=== PATIENT | female | born 1965 | race Native Hawaiian/Other Pacific Islander ===

== ENCOUNTER 2020-06-08 14:35 | Inpatient (IN) | payer SELFPAY ==
[~2020-06-08] VITALS: Ht 152.4 cm; Wt 86.3 kg
--- NOTE | 2020-06-08 15:03 | ED Neurological Problem ---
General Chief Complaint: Neurological Problems Stated Complaint: R SIDE NUMBNESS/SLURRED SPEECH/HEADACHE Source: patient Exam Limitations: no limitations History of Present Illness Date Seen by Provider: Jun 08, 2020 Time Seen by Provider: 15:01 Initial Comments To ER with reports of speech difficulty-- word searching-- and a left-sided headache over the restoration. She states these symptoms come and go and have done so for about 2 weeks. She had cataract surgery in [facility] about 3 weeks ago. She is diabetic. She states that she knows what words she wants to state but has trouble getting it to come out. Smokes 1ppd. Severity: moderate Associated Symptoms: denies symptoms Allergies and Home Medications Allergies Coded Allergies: No Known Drug Allergies (Unverified , 06/08/20) Patient Home Medication List Home Medication List Reviewed: Yes Review of Systems Review of Systems Constitutional: see HPI Eyes: No Symptoms Reported Ears, Nose, Mouth, Throat: no symptoms reported Respiratory: no symptoms reported Cardiovascular: no symptoms reported Genitourinary: no symptoms reported Musculoskeletal: no symptoms reported Skin: no symptoms reported Psychiatric/Neurological: No Symptoms Reported Endocrine: No Symptoms Reported Hematologic/Lymphatic: No Symptoms Reported Past Jqcvaob-Qrhzuf-Nwduox Hx Patient Social History Recent Foreign Travel: No Contact w/Someone Who Travel: No Physical Exam Vital Signs Vital Signs - First Documented 06/08/20 14:48 Temp 36.0 Pulse 73 Resp 18 B/P (MAP) 190/109 (136) Pulse Ox 98 O2 Delivery Room Air Capillary Refill : Height, Weight, BMI Height: '" Weight: lbs. oz. kg; BMI Method: General Appearance: WD/WN, no apparent distress HEENT: PERRL/EOMI, normal ENT inspection, other (no facial droop that afternoon as well he is) Neck: non-tender, full range of motion Respiratory: no respiratory distress, no accessory muscle use Cardiovascular: regular rate, rhythm, no murmur Gastrointestinal: normal bowel sounds, non tender Extremities: normal range of motion, non-tender Neurologic/Psychiatric: alert, normal mood/affect, oriented x 3 Crainal Nerves: normal hearing, normal speech, PERRL Skin: normal color, warm/dry Shield Iii-there is no upper extremity ataxia no drift of either extremity Stroke NIH Stroke Scale Assessment Select: Initial Level of Consciousness: 0=Alert (0), Level of Consciousness- Questions: 0=Answers both month/age (0), LOC Commands: 0=Performs both tasks (0), Gaze: Normal (0), Visual Moss: 0=No visual loss (0), Facial Movement (Facial Paresis): 0=Normal symmetrical mnt (0), Motor Function-Arms Right: 0=No drift (0), Motor Function-Arms Left: 0=No drift (0), Motor Function-Legs Right: 0=No drift (0), Motor Function-Legs Left: 0=No drift (0), Limb Ataxia: 0=Absent (0), Sensory: 0=Normal:no loss (0), Best Language: 0=No aphasia (0), Dysarthria: 1=Mild to moderate loss questionable slurred speech though she has dentures and her [place] language is Citizen [place] (though she is quite fluent in [place]) (1), Extinction & Inattention: 0=No abnormality (0), Total: 1 Progress/Results/Core Measures Results/Orders Lab Results Laboratory Tests Test 06/08/20 14:26 06/08/20 14:56 06/08/20 16:20 Range/Units White Blood Count 12.2 H 4.3-11.0 10^3/uL Red Blood Count 5.02 3.80-5.11 10^6/uL Hemoglobin 14.7 11.5-16.0 g/dL Hematocrit 44 35-52 % Mean Corpuscular Volume 88 80-99 fL Mean Corpuscular Hemoglobin 29 25-34 pg Mean Corpuscular Hemoglobin Concent 33 32-36 g/dL Red Cell Distribution Width 13.1 10.0-14.5 % Platelet Count 299 130-400 10^3/uL Mean Platelet Volume 9.3 9.0-12.2 fL Immature Granulocyte % (Auto) 0 % Neutrophils (%) (Auto) 57 42-75 % Lymphocytes (%) (Auto) 36 12-44 % Monocytes (%) (Auto) 6 0-12 % Eosinophils (%) (Auto) 1 0-10 % Basophils (%) (Auto) 0 0-10 % Neutrophils # (Auto) 7.0 1.8-7.8 10^3/uL Lymphocytes # (Auto) 4.4 H 1.0-4.0 10^3/uL Monocytes # (Auto) 0.7 0.0-1.0 10^3/uL Eosinophils # (Auto) 0.1 0.0-0.3 10^3/uL Basophils # (Auto) 0.0 0.0-0.1 10^3/uL Immature Granulocyte # (Auto) 0.0 0.0-0.1 10^3/uL Erythrocyte Sedimentation Rate 14 0-30 MM/HR Sodium Level 139 135-145 MMOL/L Potassium Level 3.9 3.6-5.0 MMOL/L Chloride Level 102 98-107 MMOL/L Carbon Dioxide Level 26 21-32 MMOL/L Anion Gap 11 5-14 MMOL/L Blood Urea Nitrogen 14 7-18 MG/DL Creatinine 0.90 0.60-1.30 MG/DL Estimat Glomerular Filtration Rate > 60 BUN/Creatinine Ratio 16 Glucose Level 236 H 70-105 MG/DL Calcium Level 9.1 8.5-10.1 MG/DL Corrected Calcium 9.1 8.5-10.1 MG/DL Total Bilirubin 0.3 0.1-1.0 MG/DL Aspartate Amino Transf (AST/SGOT) 14 5-34 U/L Alanine Aminotransferase (ALT/SGPT) 18 0-55 U/L Alkaline Phosphatase 118 40-136 U/L C-Reactive Protein High Sensitivity 1.45 H 0.00-0.50 MG/DL Total Protein 7.9 6.4-8.2 GM/DL Albumin 4.0 3.2-4.5 GM/DL Serum Alcohol < 10 <10 MG/DL Urine Color YELLOW Urine Clarity CLOUDY Urine pH 6.0 5-9 Urine Specific [place] 1.020 1.016-1.022 Urine Protein NEGATIVE NEGATIVE Urine Glucose (UA) 3+ H NEGATIVE Urine Ketones NEGATIVE NEGATIVE Urine Nitrite POSITIVE H NEGATIVE Urine Bilirubin NEGATIVE NEGATIVE Urine Urobilinogen 0.2 < = 1.0 MG/DL Urine Leukocyte Esterase NEGATIVE NEGATIVE Urine RBC (Auto) NEGATIVE NEGATIVE Urine RBC 0-2 /HPF Urine WBC 5-10 H /HPF Urine Squamous Epithelial Cells 5-10 /HPF Urine Crystals PRESENT H /LPF Urine Amorphous Sediment LARGE HARDEEP URATES H /LPF Urine Bacteria LARGE H /HPF Urine Casts NONE /LPF Urine Mucus NEGATIVE /LPF Urine Culture Indicated YES Urine Opiates Screen NEGATIVE NEGATIVE Urine Oxycodone Screen NEGATIVE NEGATIVE Urine Methadone Screen NEGATIVE NEGATIVE Urine Propoxyphene Screen NEGATIVE NEGATIVE Urine Barbiturates Screen NEGATIVE NEGATIVE Ur Tricyclic Antidepressants Screen NEGATIVE NEGATIVE Urine Phencyclidine Screen NEGATIVE NEGATIVE Urine Amphetamines Screen NEGATIVE NEGATIVE Urine Methamphetamines Screen NEGATIVE NEGATIVE Urine Benzodiazepines Screen NEGATIVE NEGATIVE Urine Cocaine Screen NEGATIVE NEGATIVE Urine Cannabinoids Screen NEGATIVE NEGATIVE My Orders Orders - JONATAN YOUSIF APRN Cbc With Automated Diff (06/08/20 14:59) Comprehensive Metabolic Panel (06/08/20 14:59) Erythrocyte Sedimentation Rate (06/08/20 14:59) Hs C Reactive Protein (06/08/20 14:59) Ct Head Wo (06/08/20 14:59) Chest 1 View, Ap/Pa Only (06/08/20 14:59) Ekg Tracing (06/08/20 14:59) Alcohol (06/08/20 14:59) Ua Culture If Indicated (06/08/20 14:59) Drug Screen Stat (Urine) (06/08/20 14:59) Urine Culture (06/08/20 16:20) Ceftriaxone For Iv Use (Rocephin For I (06/08/20 16:45) Ct Angio Head/Neck (06/08/20 16:36) Medications Given in ED Current Medications Medications Dose Ordered Sig/Sergio Route Start Time Stop Time Status Last Admin Dose Admin Ceftriaxone Sodium 1000 mg/ Sterile Water 10 ml @ 200 mls/hr ONCE ONCE IV 06/08/20 16:45 06/08/20 16:47 DC 06/08/20 16:47 200 MLS/HR Vital Signs/I&O 06/08/20 14:48 Temp 36.0 Pulse 73 Resp 18 B/P (MAP) 190/109 (136) Pulse Ox 98 O2 Delivery Room Air Diagnostic Imaging Diagonstic Imaging: CT Comments NAME: GABBY DAY [facility] REC#: [id number] PT STATUS: REG ER : 1965 PHYSICIAN: JONATAN YOUSIF APRN ADMIT DATE: 06/08/20/ER Signed Date of Exam:06/08/20 CT HEAD WO INDICATION: Intermittent slurred speech, headaches, left eye pain. EXAMINATION: CT brain without contrast, 06/08/2020. FINDINGS: Diffuse calcifications noted bilaterally in the basal ganglia. No acute hemorrhage appreciated no mass effect or midline shift. There is a nonspecific low density area within the posterior left parietal region and extending into the left occipital region, images 30 through 39. These findings could represent old infarct. A subacute process is less likely but difficult to exclude. MRI with diffusion-weighted imaging could further characterize and help exclude any restricted diffusion in the region, as clinically indicated. The remaining brain is unremarkable. Paranasal sinuses and mastoid air cells clear. IMPRESSION: Vague low density area in the left posterior parietal and occipital lobes, likely chronic although a more subacute process is difficult to completely exclude. Please see above discussion and recommendations. Dictated by: Dictated on workstation # [id number] Dict: 06/08/20 1606 Trans: 06/08/20 1622 PJE [id number] Interpreted by: ROXY MCDERMOTT MD Electronically signed by: ROXY MCDERMOTT MD 06/08/201621 NAME: GABBY DAY [facility] REC#: [id number] PT STATUS: ADM IN : 1965 PHYSICIAN: JONATAN YOUSIF APRN ADMIT DATE: 06/08/20 Draft Date of Exam:06/08/20 CT ANGIO HEAD/NECK PROCEDURE: CT angiography of the head and CT angiography of the neck with and without contrast. TECHNIQUE: Contiguous noncontrast images were obtained from the skull base through the vertex. After intravenous contrast administration, helical CT angiography of the neck was performed. Source data was reformatted into 3D MIP projections. Delayed post contrast acquisition was also obtained. Auto Exposure Controls were utilized during the CT exam to meet ALARA standards for radiation dose reduction. INDICATION: Expressive aphasia, slurred speech. COMPARISON: CT of the head from the same date. FINDINGS: Calcifications within the bilateral basal ganglia. Wedge-shaped hypodensities within the left parieto-occipital lobes are again identified. There does appear to be some enhancement of the more inferior hypodensity no midline shift. No herniation, hydrocephalus or extra-axial fluid collection. The bilateral ocular lenses are absent. Otherwise, the orbits are unremarkable. No enhancing intracranial mass lesion. 1.5 cm lucency within the right frontal bone without periosteal reaction or cortical breakthrough. The calvarium is otherwise unremarkable. The paranasal sinuses are clear. Pharyngeal fat is symmetric and well maintained. The salivary glands are unremarkable. Muscles of mastication are unremarkable. The thyroid gland is unremarkable. No significant adenopathy. The airway remains patent. No apical pneumothorax. A three-vessel aortic arch is present. origin of the left posterior cerebral artery. Otherwise, large arterial structures of the head and neck are otherwise unremarkable without evidence of occlusion, hemodynamically significant stenosis, dissection, aneurysm or pseudoaneurysm. No acute osseous abnormality with mild scattered degenerative changes. IMPRESSION: 1. Hypodensities within the left parieto-occipital lobes which appear to be cortically-based are again identified, one which demonstrate some enhancement. Given appearance, these may relate to recent/subacute infarctions, further evaluation with MRI of the brain is recommended for further evaluation. 2. Large arterial structures of the head and neck are unremarkable besides congenital anatomic variants. 3. Indeterminate lucency within the right frontal bone without definitive aggressive features of this time. Comparison to remote prior imaging may be beneficial to determine chronicity. 4. Mild emphysematous changes within the partially visualized lungs. Dictated on workstation # [id number] Dict: 06/08/20 1740 Trans: 06/08/20 1757 [facility] [id number] Interpreted by: JANNETTE MACK MD Electronically signed by: Departure Communication (Admissions) Time/Spoke to Admitting Phy: 16:55 0545--Dr. Bowden saw the patient in the emergency room we'll admit, consult cardiology get echocardiogram in the morning. Spoke with Dr. Lazo will be Toprol-XL 25 mg by mouth daily, baby aspirin daily, will do Lovenox prophylactic dose, SCDs. She does smoke a pack of cigarettes per day so I'll do a nicotine patch 21 mg transdermal to be changed daily. CT angiogram head and neck pending at this time. NAME: GABBY DAY [facility] REC#: [id number] PT STATUS: REG ER : 1965 PHYSICIAN: JONATAN YOUSIF APRN ADMIT DATE: 06/08/20/ER Signed Date of Exam:06/08/20 CT HEAD WO INDICATION: Intermittent slurred speech, headaches, left eye pain. EXAMINATION: CT brain without contrast, 06/08/2020. FINDINGS: Diffuse calcifications noted bilaterally in the basal ganglia. No acute hemorrhage appreciated no mass effect or midline shift. There is a nonspecific low density area within the posterior left parietal region and extending into the left occipital region, images 30 through 39. These findings could represent old infarct. A subacute process is less likely but difficult to exclude. MRI with diffusion-weighted imaging could further characterize and help exclude any restricted diffusion in the region, as clinically indicated. The remaining brain is unremarkable. Paranasal sinuses and mastoid air cells clear. IMPRESSION: Vague low density area in the left posterior parietal and occipital lobes, likely chronic although a more subacute process is difficult to completely exclude. Please see above discussion and recommendations. Dictated by: Dictated on workstation # [id number] Dict: 06/08/20 1606 Trans: 06/08/20 1622 [facility] [id number] Interpreted by: ROXY MCDERMOTT MD Electronically signed by: ROXY MCDERMOTT MD 06/08/20 1622 Impression Primary Impression: Subacute CVA Additional Impression: Urinary tract infection Disposition: ADMITTED INPATIENT Condition: Stable Admissions Decision to Admit Reason: Admit from ER (General) Decision to Admit/Date: Jun 08, 2020 Time/Decision to Admit Time: 16:44 Departure-Patient Inst. Referrals: [facility] (PCP/Family) Primary Care Physician JONATAN YOUSIF APRN Jun 08, 2020 15:03
[2020-06-08 15:12] LABS: CHLORIDE 102 MMOL/L (98-107); POTASSIUM 3.9 MMOL/L (3.6-5.0); SODIUM 139 MMOL/L (135-145)
[2020-06-08 15:13] LABS: CALCIUM 9.1 MG/DL (8.5-10.1)
[2020-06-08 15:15] LABS: GLUCOSE 236 MG/DL (70-105); TOTAL PROTEIN 7.9 GM/DL (6.4-8.2)
[2020-06-08 15:16] LABS: BASOPHILS % (AUTO) 0 % (0-10); BILIRUBIN,TOTAL 0.3 MG/DL (0.1-1.0); CARBON DIOXIDE 26 MMOL/L (21-32); EOSINOPHILS # (AUTO) 0.1 10^3/uL (0.0-0.3); EOSINOPHILS % (AUTO) 1 % (0-10); HEMATOCRIT 44 % (35-52); HEMOGLOBIN 14.7 g/dL (11.5-16.0); LYMPHOCYTES # (AUTO) 4.4 10^3/uL (1.0-4.0); LYMPHOCYTES % (AUTO) 36 % (12-44); MEAN CORPUSCULAR HEMOGLOBIN 29 pg (25-34); MEAN CORPUSCULAR HGB CONC 33 g/dL (32-36); MEAN CORPUSCULAR VOLUME 88 fL (80-99); MEAN PLATELET VOLUME 9.3 fL (9.0-12.2); MONOCYTES # (AUTO) 0.7 10^3/uL (0.0-1.0); MONOCYTES % (AUTO) 6 % (0-12); NEUTROPHILS % (AUTO) 57 % (42-75); PLATELET COUNT 299 10^3/uL (130-400); WHITE BLOOD COUNT 12.2 10^3/uL (4.3-11.0)
[2020-06-08 15:18] LABS: ALKALINE PHOSPHATASE 118 U/L (40-136)
[2020-06-08 15:19] LABS: BUN/CREATININE RATIO 16
[2020-06-08 15:21] LABS: ALANINE AMINOTRANSFERASE 18 U/L (0-55)
[2020-06-08 15:25] LABS: GFR ESTIMATED > 60
[2020-06-08 15:57] LABS: ERYTHROCYTE SEDIMENTATION RATE 14 MM/HR (0-30)
--- NOTE | 2020-06-08 16:09 | Diagnostic Imaging Report ---
INDICATION: Intermittent slurred speech. Headaches in the left eye region. EXAMINATION: Chest, 06/08/2020. FINDINGS: There is nonspecific airspace opacity in the right perihilar region extending into the right upper lung. Remaining lungs clear. No effusion or pneumothorax. Heart unremarkable. Pulmonary vasculature prominent, right worse than left. IMPRESSION: Nonspecific airspace opacities throughout the right lung which could be due to pneumonia. Adenopathy in the right hilum suspected. Follow-up recommended to assure complete resolution. Dictated by: Dictated on workstation # [id number]
--- NOTE | 2020-06-08 16:20 | Diagnostic Imaging Report ---
INDICATION: Intermittent slurred speech, headaches, left eye pain. EXAMINATION: CT brain without contrast, 06/08/2020. FINDINGS: Diffuse calcifications noted bilaterally in the basal ganglia. No acute hemorrhage appreciated no mass effect or midline shift. There is a nonspecific low density area within the posterior left parietal region and extending into the left occipital region, images 30 through 39. These findings could represent old infarct. A subacute process is less likely but difficult to exclude. MRI with diffusion-weighted imaging could further characterize and help exclude any restricted diffusion in the region, as clinically indicated. The remaining brain is unremarkable. Paranasal sinuses and mastoid air cells clear. IMPRESSION: Vague low density area in the left posterior parietal and occipital lobes, likely chronic although a more subacute process is difficult to completely exclude. Please see above discussion and recommendations. Dictated by: Dictated on workstation # [id number]
[2020-06-08 16:26] LABS: BILIRUBIN,URINE NEGATIVE (NEGATIVE); CLARITY,URINE CLOUDY; COLOR,URINE YELLOW; GLUCOSE, URINE (UA) 3+ (NEGATIVE); KETONES,URINE NEGATIVE (NEGATIVE); LEUKOCYTE ESTERASE ,URINE NEGATIVE (NEGATIVE); NITRITE,URINE POSITIVE (NEGATIVE); PROTEIN,URINE NEGATIVE (NEGATIVE)
[2020-06-08 16:34] LABS: AMORPHOUS SEDIMENT,UR LARGE AMOR URATES /LPF; BACTERIA,URINE LARGE /HPF; RBC,URINE 0-2 /HPF
[2020-06-08 16:39] LABS: AMPHETAMINE SCREEN, URINE NEGATIVE (NEGATIVE); BARBITURATE SCREEN URINE NEGATIVE (NEGATIVE); BENZODIAZEPINES SCREEN URINE NEGATIVE (NEGATIVE); CANNABINOID SCREEN, URINE NEGATIVE (NEGATIVE); COCAINE SCREEN URINE NEGATIVE (NEGATIVE); METHADONE STAT NEGATIVE (NEGATIVE); METHAMPHETAMINE SCREEN URINE S NEGATIVE (NEGATIVE); OPIATE SCREEN URINE NEGATIVE (NEGATIVE); OXYCODONE STAT NEGATIVE (NEGATIVE); PROPOXYPHENE STAT NEGATIVE (NEGATIVE); TRICYCLIC ANTIDEPRESSANTS SCRE NEGATIVE (NEGATIVE)
[2020-06-08] MEDS ORDERED: cefTRIAXone FOR IV USE 1,000 MG in WATER (STERILE) FOR INJECTION 10 ML IV ONE (16:45)
[2020-06-08] MEDS ORDERED: NS 100 ML (IVPB) BAG IV ONE (17:00)
[2020-06-08] MEDS ORDERED: IOHEXOL 350 MG/ML 100 ML (OMNIPAQUE 350) VIAL IV ONE (17:00)
[2020-06-08] MEDS ORDERED: HOLD METFORMIN - RECEIVED CONTRAST 20 ML VIAL IV SCH (17:00)
--- NOTE | 2020-06-08 17:49 | NUR ---
REPORT CALLED TO 4TH FLOOR. ROOM NOT READY AT THIS TIME.
--- NOTE | 2020-06-08 17:58 | Diagnostic Imaging Report ---
PROCEDURE: CT angiography of the head and CT angiography of the neck with and without contrast. TECHNIQUE: Contiguous noncontrast images were obtained from the skull base through the vertex. After intravenous contrast administration, helical CT angiography of the neck was performed. Source data was reformatted into 3D MIP projections. Delayed post contrast acquisition was also obtained. Auto Exposure Controls were utilized during the CT exam to meet ALARA standards for radiation dose reduction. INDICATION: Expressive aphasia, slurred speech. COMPARISON: CT of the head from the same date. FINDINGS: Calcifications within the bilateral basal ganglia. Wedge-shaped hypodensities within the left parieto-occipital lobes are again identified. There does appear to be some enhancement of the more inferior hypodensity no midline shift. No herniation, hydrocephalus or extra-axial fluid collection. The bilateral ocular lenses are absent. Otherwise, the orbits are unremarkable. No enhancing intracranial mass lesion. 1.5 cm lucency within the right frontal bone without periosteal reaction or cortical breakthrough. The calvarium is otherwise unremarkable. The paranasal sinuses are clear. Pharyngeal fat is symmetric and well maintained. The salivary glands are unremarkable. Muscles of mastication are unremarkable. The thyroid gland is unremarkable. No significant adenopathy. The airway remains patent. No apical pneumothorax. A three-vessel aortic arch is present. origin of the left posterior cerebral artery. Otherwise, large arterial structures of the head and neck are otherwise unremarkable without evidence of occlusion, hemodynamically significant stenosis, dissection, aneurysm or pseudoaneurysm. No acute osseous abnormality with mild scattered degenerative changes. IMPRESSION: 1. Hypodensities within the left parieto-occipital lobes which appear to be cortically-based are again identified, one which demonstrate some enhancement. Given appearance, these may relate to recent/subacute infarctions, further evaluation with MRI of the brain is recommended for further evaluation. 2. Large arterial structures of the head and neck are unremarkable besides congenital anatomic variants. 3. Indeterminate lucency within the right frontal bone without definitive aggressive features of this time. Comparison to remote prior imaging may be beneficial to determine chronicity. 4. Mild emphysematous changes within the partially visualized lungs. Dictated by: Dictated on workstation # [id number]
--- NOTE | 2020-06-08 18:32 | NUR ---
ROOM READY. PT TO GO TO FLOOR
--- NOTE | 2020-06-08 18:40 | NUR ---
GABBY DAY admitted to room 409-1, with an admitting diagnosis of cva and uti, on 06/08/20 from ed via , accompanied by staff pct.GABBY DAY introduced to surroundings, call light, bed controls, phone, TV, temperature control, lights, meal times, smoking policy, visitor policy, side rail policy, bathrooms and showers. Patient Rights given to patient in the handbook. GABBY DAY verbalizes understanding that [facility] is not responsible for the loss or damage to any personal effects or valuables that are kept in the patients posession during their hospitalization.
[2020-06-08 18:47] VITALS: BP 188/90
[2020-06-08] MEDS ORDERED: LORazepam INJ 2 MG/ML (ATIVAN) VIAL IV PRN (19:00)
--- NOTE | 2020-06-08 19:50 | History & Physical-Hospitalist ---
History of Present Illness HPI/Chief Complaint CC: Subacute CVA HPI: This is a 55yoHF who has a h/o DM but takes no meds who presents 2 weeks after unable to speak clearly and having balance issues. Apparently she had cataract removal surgery in [place] 3 weeks ago and then suffered these deficits but did not seek medical care until today. Difficult to understand the patient's speech due to dysarthria. No pain reported. She does smoke and asking for a cigarette. Source: patient, RN/MD Exam Limitations: clinical condition Date Seen 06/08/20 Time Seen by a Provider: 18:00 Attending Physician Rosa Bowden DO [facility] [place] Referring Physician Date of Admission Jun 08, 2020 at 16:51 Home Medications & Allergies Home Medications Reviewed patient Home Medication Reconciliation performed by pharmacy medication reconciliations traffic technician and/or nursing. Patients Allergies have been reviewed. Allergies Allergies Coded Allergies No Known Drug Allergies (Lsjkkthpxu30/1/20) Past Xkpayho-Asspbn-Qdufba Hx Past Med/Social Hx: Reviewed Nursing Past Med/Soc Hx, Reviewed and Corrections made Patient Social History Alcohol Use: Denies Use Recreational Drug Use: No Smoking Status: Current Everyday Smoker Type Used: Cigarettes Recent Foreign Travel: No Contact w/other who traveled: No Recent Infectious Disease Expo: No Past Medical History Surgeries: Section, Eye Surgery, Hysterectomy History of Blood Disorders: No Review of Systems Constitutional: see HPI Psychiatric/Neurological: Other (diff speaking and diff walking) Physical Exam Physical Exam Vital Signs Vital Signs - First Documented 06/08/20 14:48 Temp 36.0 Pulse 73 Resp 18 B/P (MAP) 190/109 (136) Pulse Ox 98 O2 Delivery Room Air Capillary Refill : Less Than 3 Seconds Height, Weight, BMI Height: '" Weight: lbs. oz. kg; 37.15 BMI Method: General Appearance: No Apparent Distress, Chronically ill, Obese Respiratory: Chest Non Tender, Lungs Clear, Normal Breath Sounds, No Accessory Muscle Use, No Respiratory Distress Cardiovascular: Regular Rate, Rhythm, No Edema, No Gallop, No JVD, No Murmur, Normal Peripheral Pulses Neurologic/Psychiatric: Alert, Oriented x3, Normal Mood/Affect, Abnormal Gait, Motor Weakness Skin: Normal Color, Warm/Dry Results Results/Procedures Labs Laboratory Tests 06/08/20 14:56 Patient resulted labs reviewed. Assessment/Plan Admission Diagnosis Assessment: CVA subacute Smoker DM Dysarthria PLan: CVA w/u PT OT MRI Admission Status: Inpatient Order (span 2 midnights) Reason for Inpatient Admission: CVA Diagnosis/Problems Diagnosis/Problems (1) CVA (cerebral vascular accident) Clinical Quality Measures DVT/VTE Risk/Contraindication: Risk Factor Score Per Nursin RFS Level Per Nursing on Admit: 4+=Very High ROSA BOWDEN DO Jun 08, 2020 19:50
[2020-06-08 20:00] VITALS: BP 169/77
[2020-06-08] MEDS: NICOTINE 21 MG (NICODERM) PATCH TD SCH (20:35)
[2020-06-08] MEDS: cefTRIAXone 1,000 MG/SWFI 10 ML IV PUSH IV SCH ×2 (20:36)
[2020-06-08] MEDS: NovoLOG/HumaLOG RANGE B SC SCH (22:16)
[2020-06-09] VITALS (7 sets, daily range): BP systolic 102–134; BP diastolic 55–80
[2020-06-09] MEDS: NovoLOG/HumaLOG RANGE B SC SCH ×4 (05:48→21:20)
[2020-06-09 06:08] LABS: BASOPHILS % (AUTO) 0 % (0-10); EOSINOPHILS # (AUTO) 0.1 10^3/uL (0.0-0.3); EOSINOPHILS % (AUTO) 1 % (0-10); HEMATOCRIT 41 % (35-52); HEMOGLOBIN 13.8 g/dL (11.5-16.0); LYMPHOCYTES # (AUTO) 4.1 10^3/uL (1.0-4.0); LYMPHOCYTES % (AUTO) 46 % (12-44); MEAN CORPUSCULAR HEMOGLOBIN 29 pg (25-34); MEAN CORPUSCULAR HGB CONC 33 g/dL (32-36); MEAN CORPUSCULAR VOLUME 88 fL (80-99); MEAN PLATELET VOLUME 9.8 fL (9.0-12.2); MONOCYTES # (AUTO) 0.6 10^3/uL (0.0-1.0); MONOCYTES % (AUTO) 7 % (0-12); NEUTROPHILS % (AUTO) 45 % (42-75); PLATELET COUNT 255 10^3/uL (130-400); WHITE BLOOD COUNT 8.9 10^3/uL (4.3-11.0)
[2020-06-09 06:18] LABS: CHLORIDE 104 MMOL/L (98-107); POTASSIUM 3.7 MMOL/L (3.6-5.0); SODIUM 140 MMOL/L (135-145)
[2020-06-09 06:19] LABS: ALBUMIN 3.6 GM/DL (3.2-4.5)
[2020-06-09 06:20] LABS: CALCIUM 8.7 MG/DL (8.5-10.1); TRIGLYCERIDES 114 MG/DL (<150); VLDL CHOLESTEROL 23 MG/DL (5-40)
[2020-06-09 06:21] LABS: GLUCOSE 150 MG/DL (70-105); TOTAL PROTEIN 6.9 GM/DL (6.4-8.2)
[2020-06-09 06:22] LABS: CARBON DIOXIDE 26 MMOL/L (21-32)
[2020-06-09 06:23] LABS: BILIRUBIN,TOTAL 0.5 MG/DL (0.1-1.0)
[2020-06-09 06:25] LABS: ALKALINE PHOSPHATASE 102 U/L (40-136); CREATININE SERUM 0.76 MG/DL (0.60-1.30); GFR ESTIMATED > 60
[2020-06-09 06:26] LABS: BUN/CREATININE RATIO 17; CHOLESTEROL 189 MG/DL (< 200)
[2020-06-09 06:27] LABS: HDL CHOLESTEROL 54 MG/DL (40-60)
[2020-06-09 06:28] LABS: ALANINE AMINOTRANSFERASE 16 U/L (0-55)
[2020-06-09] MEDS: NICOTINE 21 MG (NICODERM) PATCH TD SCH (09:00)
[2020-06-09] MEDS: PATCH REMOVAL TP SCH (09:00)
[2020-06-09] MEDS: ENOXAPARIN 40 MG/0.4 ML (LOVENOX) SYR SC SCH (09:00)
--- NOTE | 2020-06-09 09:23 | Occupational Therapy Eval ---
OT Evaluation-General/PLF Medical Diagnosis Admission Date Jun 08, 2020 at 16:51 Medical Diagnosis: CVA Onset Date: Jun 08, 2020 Therapy Diagnosis Therapy Diagnosis: Decreased ADL Precautions Precautions/Isolations: Standard Precautions Weight Bear Status Weight Bearing Restriction: Weight Bearing/Tolerated Referral Physician: Dennise Referral Reason: Activity Tolerance, Self Care, Evaluation/Treatment, Strengthening/ROM Medical History Additional Medical History DM, everyday smoker. Current History Pt experienced decreased balance for [address] scan shows vague low density area in L posterior parietal and occipital lobes, likely chronic. Pt states a decrease of vision, "going blind" and frustration with word finding. Reviewed History: Yes Social History Home: Apartment Current Living Status: Significant Other Entry Into Home: Level Entry ADL-Prior Level of Function SCALE: Activities may be completed with or without assistive devices. 8-Qhwkckfoxk-jqrfgvh completes the activity by him/herself with no assistance from a helper. 5-Set-up or Clean-up Assistance-helper sets up or cleans up; patient completes activity. [place] assists only prior to or following the activity. 4-Supervision or Touching Assistance-helper provides verbal cues and/or touching/steadying and/or contact guard assistance as patient completes activity. Assistance may be provided throughout the activity or intermittently. 3-Partial/Moderate Assistance-helper does LESS THAN HALF the effort. [place] lifts, holds or supports trunk or limbs, but provides less than half the effort. 2-Substantial/Maximal Assistance-helper does MORE THAN HALF the effort. [place] lifts or holds trunk or limbs and provides more than half the effort. 8-Rahdtgwmw-atocoq does ALL the effort. Patient does none of the effort to complete the activity. Or, the assistance of 2 or more helpers is required for the patient to complete the activity. If activity was not attempted, code reason: 7-Patient Refused. 9-Not Applicable-not attempted and the patient did not perform the activity before the current illness, exacerbation or injury. 10-Not Attempted due to Environmental Limitations-(lack of equipment, weather restraints, etc.). 88-Not Attempted due to Medical Conditions or Safety Concerns. ADL PLOF Comments Pt IND wihtout walker Self Care: Independent Functional Cognition: Independent DME/Equipment: Tub/Shower DME/Equipment Comments tub/ shower. 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 Alert/ oriented x3. Pt agrees to tx. Pt educated on OT and purpose. Pt states "all speech," pt slightly difficult to understand through treatment due to slurring/ accent. Mental Status/Objective Patient Orientation: Person, Place, Situation, Normal For Age Current Glasses/Contacts: Yes Hearing Aids: No Hand Dominance: Right Upper Extremity ROM WFL BUE Upper Extremity Coordination WFL BUE Upper Extremity Sensation WFL BUE Upper Extremity Strength WFL BUE 4/5 ADL-Treatment Eating (QC): 88 (awaiting MRI, NPO at this time per pt.) Oral Hygiene (QC): 6 (IND per clinical judgment.) On/Off Footwear (QC): 6 Toileting Hygiene (QC): 6 (per pt and clinical judgment) Other Treatments Pt supine to sit SBA. Sit to stand SBA and ambulates without AD to recliner. Sits with control. Denies any dizziness/ lightheadedness in stance. Pt states has been up to bathroom/ able to cleanse self. Pt agrees that pt has had no motoric sx. Pt completes MMT/ ROM. Pt states lives with boyfriend, completes cooking/ cleaning tasks. Pt states has been "going blind," unable to fully understand all words, but does say boyfriend, "Doesn't help wash my face." Pt's boyfriend calls 2x during session. Pt answers and explains she is "being helped." Pt states he is bringing her underwear. Pt educated on no continued skilled OT. Pt agrees. Pt left in recliner with all needs met, call light in reach. Education OT Patient Education: Correct positioning, Progress toward Goal/Update tx plan, Safety issues Teaching Recipient: Patient Teaching Methods: Demonstration, Discussion Response to Teaching: Verbalize Understanding, Return Demonstration OT Leaf Binner Goals Group Home Goals 1=Demonstrate adherence to instructed precautions during ADL tasks. 2=Patient will verbalize/demonstrate understanding of assistive devices/modifications for ADL. 3=Patient will improve strength/tolerance for activity to enable patient to perform ADL's. OT Education/Plan Problem List/Assessment Assessment: No Skilled OT Needs ID'd Discharge Recommendations Plan/Recommendations: Discharge/Goals Met Therapy Discharge Recommendati: Intermittent Supervision, Home & Family Treatment Plan/Plan of Care Treatment,Training & Education: Yes Patient would benefit from OT for education, treatment and training to promote independence in ADL's, mobility, safety and/or upper extremity function for ADL's. Plan of Care: OTHER (eval and d/c.) Treatment Duration: Jun 09, 2020 Frequency: 1 time per week (eval and d/c.) Time/GCodes Start Time: 08:25 Stop Time: 08:45 Total Time Billed (hr/min): 20 Billed Treatment Time 1, EVM (20) d/c. BRENDA APPLE OTR Jun 09, 2020 09:23
--- NOTE | 2020-06-09 09:30 | NUR ---
DR BUSH WANTS MRI OF PTS BRAIN WITHOUT CONTRAST DX CVA. THIS RN PUT IN ORDER PER DR'S REQUEST.
[2020-06-09] MEDS ORDERED: ASPI-808 PO (09:39)
--- NOTE | 2020-06-09 09:40 | NUR ---
I SPOKE WITH THE PATIENT TO COMPLETE THIS MED REC. PATIENT IS ONLY TAKING ASPIRIN OTC AT THIS TIME.
--- NOTE | 2020-06-09 09:48 | Progress Note - Hospitalist ---
Subjective HPI/CC On Admission Date Seen by Provider: Jun 09, 2020 Time Seen by Provider: 10:00 CC: Subacute CVA HPI: This is a 55yoHF who has a h/o DM but takes no meds who presents 2 weeks after unable to speak clearly and having balance issues. Apparently she had cataract removal surgery in [place] 3 weeks ago and then suffered these deficits but did not seek medical care until today. Difficult to understand the patient's speech due to dysarthria. No pain reported. She does smoke and asking for a cigarette. Subjective/Events-last exam MRI confirmed stroke Pt reports she is speaking better She feels like she is walking better PT, OT and speech therapy to see her Echocardiogram ordered Maintain on Aspirin and Statin Review of Systems General: Fatigue, Malaise Neurological: Weakness, Incoordination Objective Exam Vital Signs Vital Signs Date Time Temp Pulse Resp B/P (MAP) Pulse Ox O2 Delivery O2 Flow Rate FiO2 06/10/20 04:22 36.2 67 18 111/72 (85) 96 Room Air Capillary Refill : Less Than 3 Seconds General Appearance: No Apparent Distress, WD/WN, Chronically ill, Obese HEENT: PERRL/EOMI, Normal ENT Inspection, Pharynx Normal, Moist Mucous Membranes Neck: Full Range of Motion, Normal Inspection, Non Tender, Supple, Carotid Bruit Respiratory: Chest Non Tender, Lungs Clear, Normal Breath Sounds, No Accessory Muscle Use, No Respiratory Distress Cardiovascular: Regular Rate, Rhythm, No Edema, No Gallop, No JVD, No Murmur, Normal Peripheral Pulses Gastrointestinal: Normal Bowel Sounds, No Organomegaly, No Pulsatile Mass, Non Tender, Soft Back: Normal Inspection, No CVA Tenderness, No Vertebral Tenderness Extremity: Normal Capillary Refill, Normal Inspection, Normal Range of Motion, Non Tender, No Calf Tenderness, No Pedal Edema Neurologic/Psychiatric: Alert, Oriented x3, Normal Mood/Affect, Abnormal Gait, Motor Weakness (generalized and right sided ) Skin: Normal Color, Warm/Dry Lymphatic: No Adenopathy Results/Procedures Lab Laboratory Tests 06/09/20 05:24 Patient resulted labs reviewed. Assessment/Plan Assessment and Plan Assess & Plan/Chief Complaint Assessment: CVA subacute Smoker DM Dysarthria PLan: CVA w/u PT OT MRI 06/09/20: MRI reviewed Cardiology appreciated Elephant Keeper closely Start Aspirin and Lipitor Diagnosis/Problems Diagnosis/Problems (1) CVA (cerebral vascular accident) Clinical Quality Measures DVT/VTE Risk/Contraindication: Risk Factor Score Per Nursin RFS Level Per Nursing on Admit: 4+=Very High KATHY BUSH DO Jun 09, 2020 09:48
--- NOTE | 2020-06-09 10:01 | Consultation-Cardiology ---
HPI-Cardiology Cardiology Consultation Date of Consultation 06/09/20 Date of Admission Time Seen by Provider: 09:56 Indication: Subacute CVA HPI Patient is a 55 y/o female with PMH of DM, tobaccoism. Presented to the ER with c/o slurred speech and difficulty word finding as well as right arm numbness. Patient is a poor historian and reports onset of symptoms 2 days ago, although reported to ER symptoms began 2 weeks ago. Denies any chest pain, dyspnea, dizziness or lightheadedness. Denies any previous history of stroke of CAD. Home Medications & Allergies Allergies: Coded Allergies: No Known Drug Allergies (Unverified , 06/08/20) YOO-Seoycc-Vdanga Hx Patient Social History Marital Status: single, cohabiting Employed/Student: unemployed Alcohol Use: Denies Use Recreational Drug Use: No Smoking Status: Current Everyday Smoker Type Used: Cigarettes Recent Foreign Travel: No Recent Infectious Disease Expo: No Past Medical History DM Family Medical History Significant Family History: No Pertinent Family Hx Review of Systems-General Review of Systems Constitutional: see HPI; No chills, No diaphoresis, No malaise, No weakness EENTM: see HPI, no symptoms reported; No ear pain, No blurred vision, No double vision, No vision loss Respiratory: no symptoms reported; No cough, No dyspnea on exertion, No short of breath Cardiovascular: no symptoms reported; No chest pain, No edema, No Hx of Intervention, No palpitations Gastrointestinal: No abdominal pain, No constipation, No diarrhea Genitourinary: no symptoms reported; No dysuria, No frequency Musculoskeletal: no symptoms reported Skin: no symptoms reported Psychiatric/Neurological: Other (diff speaking and diff walking) Reviewed Test Results Reviewed Test Results Lab Laboratory Tests 06/08/20 14:26: 06/08/20 14:56: White Blood Count 12.2H, Red Blood Count 5.02, Hemoglobin 14.7, Hematocrit 44, Mean Corpuscular Volume 88, Mean Corpuscular Hemoglobin 29, Mean Corpuscular Hemoglobin Concent 33, Red Cell Distribution Width 13.1, Platelet Count 299, Mean Platelet Volume 9.3, Immature Granulocyte % (Auto) 0, Neutrophils (%) (Auto) 57, Lymphocytes (%) (Auto) 36, Monocytes (%) (Auto) 6, Eosinophils (%) (Auto) 1, Basophils (%) (Auto) 0, Neutrophils # (Auto) 7.0, Lymphocytes # (Auto) 4.4H, Monocytes # (Auto) 0.7, Eosinophils # (Auto) 0.1, Basophils # (Auto) 0.0, Immature Granulocyte # (Auto) 0.0, Erythrocyte Sedimentation Rate 14, Sodium Level 139, Potassium Level 3.9, Chloride Level 102, Carbon Dioxide Level 26, Anion Gap 11, Blood Urea Nitrogen 14, Creatinine 0.90, Estimat Glomerular Filtration Rate > 60, BUN/Creatinine Ratio 16, Glucose Level 236H, Calcium Level 9.1, Corrected Calcium 9.1, Total Bilirubin 0.3, Aspartate Amino Transf (AST/ SGOT) 14, Alanine Aminotransferase (ALT/SGPT) 18, Alkaline Phosphatase 118, C- Reactive Protein High Sensitivity 1.45H, Total Protein 7.9, Albumin 4.0, Serum Alcohol < 10 06/08/20 16:20: Urine Color YELLOW, Urine Clarity CLOUDY, Urine pH 6.0, Urine Specific [place] 1.020, Urine Protein NEGATIVE, Urine Glucose (UA) 3+H, Urine Ketones NEGATIVE, Urine Nitrite POSITIVEH, Urine Bilirubin NEGATIVE, Urine Urobilinogen 0.2, Urine Leukocyte Esterase NEGATIVE, Urine RBC (Auto) NEGATIVE, Urine RBC 0-2, Urine WBC 5-10H, Urine Squamous Epithelial Cells 5-10, Urine Crystals PRESENTH, Urine Amorphous Sediment LARGE HARDEEP URATESH, Urine Bacteria LARGEH, Urine Casts NONE, Urine Mucus NEGATIVE, Urine Culture Indicated YES, Urine Opiates Screen NEGATIVE, Urine Oxycodone Screen NEGATIVE, Urine Methadone Screen NEGATIVE, Urine Propoxyphene Screen NEGATIVE, Urine Barbiturates Screen NEGATIVE, Ur Tricyclic Antidepressants Screen NEGATIVE, Urine Phencyclidine Screen NEGATIVE, Urine Amphetamines Screen NEGATIVE, Urine Methamphetamines Screen NEGATIVE, Urine Benzodiazepines Screen NEGATIVE, Urine Cocaine Screen NEGATIVE, Urine Cannabinoids Screen NEGATIVE 06/08/20 20:53: Glucometer 164H 06/09/20 01:54: Glucometer 140H 06/09/20 05:17: Glucometer 160H 06/09/20 05:24: White Blood Count 8.9, Red Blood Count 4.69, Hemoglobin 13.8, Hematocrit 41, Mean Corpuscular Volume 88, Mean Corpuscular Hemoglobin 29, Mean Corpuscular Hemoglobin Concent 33, Red Cell Distribution Width 13.0, Platelet Count 255, Mean Platelet Volume 9.8, Immature Granulocyte % (Auto) 0, Neutrophils (%) (Auto) 45, Lymphocytes (%) (Auto) 46H, Monocytes (%) (Auto) 7, Eosinophils (%) (Auto) 1, Basophils (%) (Auto) 0, Neutrophils # (Auto) 4.0, Lymphocytes # (Auto) 4.1H, Monocytes # (Auto) 0.6, Eosinophils # (Auto) 0.1, Basophils # (Auto) 0.0, Immature Granulocyte # (Auto) 0.0, Sodium Level 140, Potassium Level 3.7, Chloride Level 104, Carbon Dioxide Level 26, Anion Gap 10, Blood Urea Nitrogen 13, Creatinine 0.76, Estimat Glomerular Filtration Rate > 60, BUN/Creatinine Ratio 17, Glucose Level 150H, Calcium Level 8.7, Corrected Calcium 9.0, Total Bilirubin 0.5, Aspartate Amino Transf (AST/SGOT) 14, Alanine Aminotransferase (ALT/SGPT) 16, Alkaline Phosphatase 102, Total Protein 6.9, Albumin 3.6, Triglycerides Level 114, Cholesterol Level 189, LDL Cholesterol Direct 135H, VLDL Cholesterol 23, HDL Cholesterol 54 Microbiology 06/08/20 Urine Culture - Preliminary, Resulted Gram Negative Lino ECG Impression ECG Initial ECG Rhythm: Normal Sinus Physical Exam Physical Exam Vital Signs Vital Signs - First Documented 06/08/20 14:48 Temp 36.0 Pulse 73 Resp 18 B/P (MAP) 190/109 (136) Pulse Ox 98 O2 Delivery Room Air Capillary Refill : Less Than 3 Seconds Height, Weight, BMI Height: '" Weight: lbs. oz. kg; 37.15 BMI Method: General Appearance: No Apparent Distress, Chronically ill, Obese Neck: Non Tender, Supple Respiratory: Chest Non Tender, Lungs Clear, Normal Breath Sounds, No Accessory Muscle Use, No Respiratory Distress Cardiovascular: Regular Rate, Rhythm, No Edema, No Gallop, No JVD, No Murmur, Normal Peripheral Pulses Gastrointestinal: No Pulsatile Mass, Non Tender, Soft Back: No CVA Tenderness Extremity: No Pedal Edema Neurologic/Psychiatric: Alert, Oriented x3, Normal Mood/Affect, Abnormal Gait, Motor Weakness Skin: Normal Color, Warm/Dry A/P-Cardiology Admission Diagnosis Subacute CVA HTN HLP DM Tobaccoism Assessment/Plan Subacute CVA- CTA Head and neck showing hypodensities within the left parieto- occipital lobes which appear to be cortically-based are again identified, one which demonstrate some enhancement. Given appearance, these may relate to recent/subacute infarctions, further evaluation with MRI of the brain is recommended for further evaluation. Large arterial structures of the head and neck are unremarkable besides congenital anatomic variants. Indeterminate lucency within the right frontal bone without definitive aggressive features of this time. Comparison to remote prior imaging may be beneficial to determine chronicity. Started on ASA. I will evaluat 2D Echo. HTN, Start her on Toprol, reported episode of bradycardia while asleep, I will stop the Toprol and use losartan and monitor on telemetry HLP- LDL 135, start on statin, continue to monitor as outpatient. DM- poorly controlled, needs to establish with PCP. Tobaccoism- educated on the importance of smoking cessation. Thank you for allowing us to participate in the management of Ms. Willams. This is Tabitha Miranda PA-C, as a scribe for Dr. Lazo. Patient was seen and evaluated with Tabitha, examination performed, management plan was discussed, agree with the current scribed note, I made few changes to the note using Italic font Patient was seen and evaluated with Tabitha, still having slight slurred speech & slight weakness in the right upper extremity. Subacute CVA, symptoms waxing and waning Started on aspirin. Started on statin Clinical Quality Measures DVT/VTE Risk/Contraindication: Risk Factor Score Per Nursin RFS Level Per Nursing on Admit: 4+=Very High TABITHA CARDENAS Jun 09, 2020 10:01 am DIONE LAZO MD Jun 09, 2020 12:04 pm
--- NOTE | 2020-06-09 10:45 | Physical Therapy Evaluation ---
PT Evaluation-General Medical Diagnosis Admission Date Jun 08, 2020 at 16:51 Medical Diagnosis: CVA Onset Date: Jun 08, 2020 Therapy Diagnosis Therapy Diagnosis: debility/weakness Precautions Precautions/Isolations: Standard Precautions Referral Physician: Dennise Reason for Referral: Evaluation/Treatment Medical History Pertinent Medical History: DM, Smoking Current History ER with right sided numbness and slurred speech/[place]/balance issues x 2 weeks Reviewed History: Yes Social History Home: Apartment Current Living Status: Significant Other Entry Into Home: Level Entry Prior Prior Level of Function SCALE: Activities may be completed with or without assistive devices. 1-Fcwzeceflm-opewnik completes the activity by him/herself with no assistance from a helper. 5-Set-up or Clean-up Assistance-helper sets up or cleans up; patient completes activity. [place] assists only prior to or following the activity. 4-Supervision or Touching Assistance-helper provides verbal cues and/or touch ing/steadying and/or contact guard assistance as patient completes activity. Assistance may be provided throughout the activity or intermittently. 3-Partial/Moderate Assistance-helper does LESS THAN HALF the effort. [place] lifts, holds or supports trunk or limbs, but provides less than half the effort. 2-Substantial/Maximal Assistance-helper does MORE THAN HALF the effort. [place] lifts or holds trunk or limbs and provides more than half the effort. 4-Lfpfuuymo-xrlxat does ALL the effort. Patient does none of the effort to complete the activity. Or, the assistance of 2 or more helpers is required for the patient to complete the activity. If activity was not attempted, code reason: 7-Patient Refused. 9-Not Applicable-not attempted and the patient did not perform the activity before the current illness, exacerbation or injury. 10-Not Attempted due to Environmental Limitations-(lack of equipment, weather restraints, etc.). 88-Not Attempted due to Medical Conditions or Safety Concerns. Bed Mobility: 6 Transfers (B,C,W/C): 6 Gait: 6 Stairs: 6 Indoor Mobility (Ambulation): Independent Stairs: Independent Prior Devices Use: None PT Evaluation-Current Subjective Patient agrees to PT. Objective Patient Orientation: Normal For Age ROM/Strength ROM Lower Extremities bilateral LE WFL Strength Lower Extremities 4/5 grossly bilateral LE all planes Integumentary/Posture Integumentary refer to nursing notes Bowel Incontinence: No Bladder Incontinence: No Posture WFL Neuromuscular (Tone, Coordination, Reflexes) grossly intact Sensory Vision: Functional Hearing: Functional Hand Dominance: Right Transfers Roll Left to Right (QC): 6 Sit to Lying (QC): 6 Lying to Sitting/Side of Bed(Q: 6 Sit to Stand (QC): 6 Chair/Aoq-sa-Wjbkl Xfer(QC): 6 Gait Does the Patient Walk?: Yes Mode of Locomotion: Walk Anticipated Mode of Locomotion: Walk Walk 10 feet (QC): 6 Walk 50 ft with 2 Turns(QC): 6 Walk 150 ft (QC): 6 Distance: 500' Gait Assistive Device: None Comments/Gait Description safe and functional with no deviation Balance Sitting Static: Normal Sitting Dynamic: Normal Standing Static: Normal Standing Dynamic: Normal Assessment/Needs 55 y.o. female, is currently at [facility] with all gross motor skills and does not require skilled therapy intervention. Patient is and has been up ad mady in room independently as well. Rehab Potential: Fair PT Plan Treatment/Plan Treatment Plan: Discontinue PT, goals met Treatment Duration: Jun 09, 2020 Frequency: 1 time per week Estimated Hrs Per Day: .25 hour per day Patient and/or Family Agrees t: Yes Time/GCodes Time In: 948 Time Out: 958 Total Billed Treatment Time: 10 Total Billed Treatment 1 visit EVLow 10 min FAVIAN GUERIN PT Jun 09, 2020 10:45
--- NOTE | 2020-06-09 10:56 | Diagnostic Imaging Report ---
PROCEDURE: MR imaging of the brain without contrast. TECHNIQUE: Multiplanar, multisequence MR imaging of the brain was performed without contrast. INDICATION: Weakness and slurred speech. COMPARISON: Comparison is made with CT head studies performed one day earlier. FINDINGS: There are areas of diffusion restriction identified in the left posterior parieto-occipital lobes, corresponding to the areas of low density noted on CT. There is also some deep white matter diffusion restriction in the left centrum semiovale. A tiny focus of diffusion restriction in right occipital lobe in right paramidline location is noted which may represent a microinfarct. The normal expected flow-voids within the carotid siphons are seen. No midline shift is seen. Periventricular white matter changes are noted, consistent with chronic microvascular ischemia. No acute intracranial hemorrhage is detected. Corpus callosum is unremarkable. Sella and parasellar structures are unremarkable. IMPRESSION: Findings consistent with acute/subacute infarct in left posterior parieto-occipital lobes, corresponding to the areas of ill-defined low density noted on recent CT. There is also a microinfarct in right occipital lobe. No other significant abnormality is seen. Results were given to Dr. Bowden prior to this dictation. Dictated by: Dictated on workstation # [id number]
[2020-06-09] MEDS: ASPIRIN 81 MG CHEW (CHILDREN'S ASA) PO SCH (11:22)
--- NOTE | 2020-06-09 11:55 | NUR ---
IRF Evaluation Determination: Denied Explanation: Patient is independent with activities evaluated by both PT and OT; therefore, patient does not meet criteria. Thank you for this referral.
[2020-06-09] MEDS: LOSARTAN 50 MG (COZAAR) TAB PO SCH (12:36)
--- NOTE | 2020-06-09 14:19 | ST Cognitive Linguistic Eval ---
Speech Evaluation-General Medical Diagnosis CVA Onset Date: Jun 08, 2020 Therapy Diagnosis Therapy Diagnosis: Aphasia, Dysarthria Referral Referring Physician: Dr. Bowden Medical History Pertinent Medical History: DM, Smoking Reviewed History: Yes Social History Current Living Status: Significant Other Speech PLF-Current Status Prior Level of Function Patient lived in the home with her SO where she was independent for her daily needs. Subjective Patient was pleasant with the assessment process. Language Eval: Auditory Comprehends Simple Yes/No Ques: Functional Indent/Objects Multiple [place]: Functional Ident/Pics in Multiple Moss: Functional Follows 1-Step Commands: Functional Follows Complex Directions: Functional Follows General Conversations: Functional Language Eval: Verbal Language Completes Spontaneous Greeting: Functional Produces Auto, Serial Info: Functional Imitates Simple Words/Phrases: Functional Word Finding: Mild Requests Basic Needs: Functional States Basic Personal Info: Functional Patient speaks in broken Serbian, often searching for the right word. Receptive language is WFL. Objective Cognitive Domain Attention: WNL Memory: WNL Problem Solving: Functional Executive Functions: WNL Objective Formal/Standardized Tests Informal tasks, subtests of the WAB Results completed within mild expressive deficits, however these deficits appear due to Serbian as a second language. Oral Motor/Speech Production Patient's speech is 90% intelligible which is apparently significantly improved from the time of admit Speech-Plan Treatment Plan Rehab Potential: NATANAEL Daniel Jun 09, 2020 14:19
--- NOTE | 2020-06-09 14:31 | ST Cognitive Linguistic Eval ---
Speech Evaluation-General Medical Diagnosis CVA Onset Date: Jun 08, 2020 Therapy Diagnosis Therapy Diagnosis: Cognitive-communication Referral Referring Physician: Dr. Bowden Medical History Pertinent Medical History: DM, Smoking Reviewed History: Yes Social History Current Living Status: Significant Other Speech PLF-Current Status Prior Level of Function Patient lived in the home with her SO where she was independent for her daily needs. Subjective Patient was pleasant and cooperative with the assessment. Language Eval: Auditory Comprehends Simple Yes/No Ques: Functional Indent/Objects Multiple Moss: Functional Ident/Pics in Multiple Moss: Functional Follows 1-Step Commands: Functional Follows Complex Directions: Mild Follows General Conversations: Functional Language Eval: Verbal Language Completes Spontaneous Greeting: Functional Produces Auto, Serial Info: Functional Imitates Simple Words/Phrases: Functional Word Finding: Mild Requests Basic Needs: Functional States Basic Personal Info: Functional Expresses Complex Ideas: Mild Objective Cognitive Domain Attention: WNL Memory: WNL Problem Solving: Functional Executive Functions: WNL Objective Formal/Standardized Tests Informal tasks, sub tests of the WAB Results Patient exhibits mild deficits with expressive, however these deficits appear to be due to Guatem[place] as a second language. Oral Motor/Speech Production Patient's speech is 90% intelligible which appear to be significantly improved from the time of admission Impression Patient is a pleasant 55 y/o female who presented to the ARU s/p CVA. Patient's intake report states the patient's speech was more slurred than at the time of evaluation today. The patient was given informal tasks to complete as well as sub tests of the WAB which indicated a mild expressive deficit. Patient's receptive language is WFL. Patient is an Guatem[place] as second language speaker which has an impact on her score. Patient's speech is at 90% intelligible which is much improved from the time of admission according to the records. Speech Short Term Goals Short Term Goals Short Term Goals 1) Patient will complete speech production tasks at 90% or greater with minimal cues. 2) Patient will complete naming tasks at 90% or greater with minimal cues. Speech Residential Goals Residential Goals Patient will improve language skills to baseline at 90-100%. Speech-Plan Patient/Family Goals Patient/Family Goals: The patient plans on returning to her home where she lives with her SO. Treatment Plan Speech Therapy Treatment Plan: Continue Plan of Care Treatment Duration: Jun 13, 2020 Frequency: 3 times per week Estimated Hrs Per Day: .25 hour per day Rehab Potential: Fair Barriers to Learning: Patient's medical status, Guatemalan as a second language Pt/Family Agrees to Plan: Yes Safety Risks/Education Teaching Recipient: Patient Teaching Methods: Discussion Response to Teaching: Verbalize Understanding Education Topics Provided: Safety within her room, communication of wants/needs Time Speech Therapy Time In: 11:30 Speech Therapy Time Out: 11:50 Total Billed Time: 20 Billed Treatment Time 1, BRITTANI BAI B[address] ST Jun 09, 2020 14:31
--- NOTE | 2020-06-09 17:14 | Progress Note ---
GARY INIGUEZ MED STUDENT 06/09/20 1714: Progress Note Neurological Exam CN II -- reactive CN II, IV, -- decreased eye movement overall, improved with use of patient's glasses CN V -- sensation and motor intact CN VII -- motor intact bilaterally CN VIII -- intact bilaterally CN IX -- intact bilaterally CN X -- Intact bilaterally CN XI -- intact bilaterally CN XII -- intact bilaterally ROSA BUSH DO 06/10/20 0541: Supervisory-Addendum Brief Verification & Attestation Participated in pt care: history, MDM, physical Personally performed: exam, history, MDM, supervision of care Care discussed with: Medical Student Procedures: n/a Results interpretation: Verified all documentation Verification and Attestation of Medical Student E/M Service A medical student performed and documented this service in my presence. I reviewed and verified all information documented by the medical student and made modifications to such information, when appropriate. I personally performed the physical exam and medical decision making. Rosa Bush, Jun 10, 2020,05:41 GARY INIGUEZ MED STUDENT Jun 09, 2020 17:14 ROSA BUSH DO Jun 10, 2020 05:41
[2020-06-09] MEDS: cefTRIAXone 1,000 MG/SWFI 10 ML IV PUSH IV SCH ×2 (18:08)
[2020-06-10 04:22] VITALS: BP 111/72
[2020-06-10] MEDS: NovoLOG/HumaLOG RANGE B SC SCH ×2 (05:51→11:12)
[2020-06-10] MEDS ORDERED: glyBURIDE 2.5 MG (MICRONASE) TAB PO SCH (06:30)
[2020-06-10 08:00] VITALS: BP 100/66
--- NOTE | 2020-06-10 08:05 | Cardiology Progress Note ---
Subjective Date Seen by Provider: Jun 10, 2020 Time Seen by Provider: 08:03 Subjective/Events-last exam Patient is laying down in bed, still having slurred speech. No new complaint Review of Systems General: No Chills, No Night Sweats, No Fatigue, No Malaise, No Appetite, No Other HEENT: No Head Aches, No Visual Changes, No Eye Pain, No Ear Pain, No Dysphasia, No Sinus Congestion, No Post Nasal Drip, No Sore Throat, No Other Pulmonary: No Dyspnea, No Cough, No Pleuritic Chest Pain, No Other Cardiovascular: No: Chest Pain, Palpitations, Orthopnea, Paroxysmal Noc. Dyspnea, Edema, Lt Headedness, Other Objective-Cardiology Exam Last Set of Vital Signs Vital Signs 06/10/20 04:22 Temp 36.2 Pulse 67 Resp 18 B/P (MAP) 111/72 (85) Pulse Ox 96 O2 Delivery Room Air Capillary Refill : Less Than 3 Seconds I&O Intake and Output 06/10/20 00:00 Intake Total 1215 ml Output Total 500 ml Balance 715 ml Intake Oral 1215 ml Output Urine Total 500 ml # Voids 2 # Bowel Movements 1 General: Alert, Oriented X3, Cooperative HEENT: Atraumatic, PERRLA Neck: Supple, No JVD, No Thyromegaly Lungs: Clear to Auscultation, Normal Air Movement Heart: Regular Rate, Normal S1, Normal S2, No Murmurs Abdomen: Normal Bowel Sounds, Soft, No Tenderness, No Hepatosplenomegaly, No Masses Extremities: No Clubbing, No Cyanosis, No Edema, Normal Pulses, No Tenderness/Swelling Skin: No Rashes, No Breakdown, No Significant Lesion Neuro: Normal Gait, Normal Tone, Sensation Intact, Other (slurred speech) Psych/Mental Status: Mental Status NL, Mood NL A/P-Cardiology Admission Diagnosis Subacute CVA HTN HLP DM Tobaccoism Assessment/Plan Subacute CVA- CTA Head and neck showing hypodensities within the left parieto- occipital lobes which appear to be cortically-based are again identified, one which demonstrate some enhancement. Acute/subacute infarct in the parietal occipital lobe, receiving medical therapy, managed by primary care team Hypertension, better control at this time. Continue to monitor Hyperlipidemia started on Lipitor 80 mg daily, continue to monitor next Diabetes mellitus, managed and followed by primary care physician Tobaccoism- educated on the importance of smoking cessation. Clinical Quality Measures DVT/VTE Risk/Contraindication: Risk Factor Score Per Nursin RFS Level Per Nursing on Admit: 4+=Very High DIONE SCHWARTZ MD Jun 10, 2020 08:05
[2020-06-10] MEDS: ASPIRIN 81 MG CHEW (CHILDREN'S ASA) PO SCH (08:18)
[2020-06-10] MEDS: LOSARTAN 50 MG (COZAAR) TAB PO SCH (08:18)
[2020-06-10] MEDS: PATCH REMOVAL TP SCH (08:19)
[2020-06-10] MEDS: ENOXAPARIN 40 MG/0.4 ML (LOVENOX) SYR SC SCH (08:19)
[2020-06-10] MEDS ORDERED: LOSARTAN 50 MG (COZAAR) TAB PO SCH (09:00)
[2020-06-10] MEDS: NICOTINE 21 MG (NICODERM) PATCH TD SCH (09:53)
[2020-06-10] MEDS ORDERED: LOSA50TA63 PO (10:19)
[2020-06-10] MEDS ORDERED: ATOR80TA76 PO (10:19)
[2020-06-10] MEDS ORDERED: ASPI-999 PO (10:19)
[2020-06-10] MEDS ORDERED: NICO1PAT34 TD (10:19)
[2020-06-10] MEDS ORDERED: GLYB2.5T4 PO (10:19)
--- NOTE | 2020-06-10 10:20 | Discharge Summary ---
Discharge Summary Hospital Course Was the Problem List Reviewed?: Yes Problems/Dx: (1) CVA (cerebral vascular accident) Hospital Course Date of Admission: Jun 08, 2020 at 16:51 Admission Diagnosis : Family Physician/Provider: [facility] Date of Discharge: 06/10/20 Discharge Diagnosis: CVA, dysarthria, disequilibrium, HTN, Smoker, HLP Hospital Course: Hospital Course: Pt had an uneventful hospital course. She was admitted for subacute stroke, not a TPA candidate. CT scan showed abnormality, MRI confirmed abnormality. Cardiology evaluated her and placed her on Losartan, Lipitor , and Aspirin and I put her on Glyburide 1.25mg twice daily and DC her with smoking cessation nicotine patches and she will have close follow up at [facility] for further workup. Carotid ultrasound was completed prior to DC. Labs and Pending Lab Test: Laboratory Tests 06/09/20 10:56: Glucometer 286H 06/09/20 15:53: Glucometer 135H 06/09/20 20:14: Glucometer 200H 06/10/20 05:44: Glucometer 153H Microbiology 06/08/20 Urine Culture - Preliminary, Resulted Escherichia coli Home Meds Active Glyburide 2.5 Mg Tablet 1.25 Mg PO DAILY@0630 Aspirin 81 Mg Tab.chew 81 Mg PO DAILY@0900 Losartan Potassium 50 Mg Tablet 50 Mg PO DAILY Atorvastatin Calcium 80 Mg Tablet 80 Mg PO HS Nicoderm Cq (Nicotine) 1 Each Patch.td24 21 Mg TD DAILY Reported Aspirin 325 Mg Tablet 650 Mg PO Q4H PRN TAKES 2 (325MG) TABLETS Assessment/Pt Instructions [facility] 1 week Discharge Planning: <30 minutes discharge planning Discharge Instructions Pneumonia Vaccine Order Indica: Yes Discharge Physical Examination Vital Signs Vital Signs Date Time Temp Pulse Resp B/P (MAP) Pulse Ox O2 Delivery O2 Flow Rate FiO2 06/10/20 08:00 Room Air 06/10/20 08:00 36.6 70 20 100/66 (77) 97 General Appearance: No Apparent Distress, WD/WN, Chronically ill, Obese Allergies: Coded Allergies: No Known Drug Allergies (Unverified , 06/08/20) Discharge Summary Date of Admission Jun 08, 2020 at 16:51 Date of Discharge Discharge Date: Jun 10, 2020 Admission Diagnosis Assessment: CVA subacute Smoker DM Dysarthria PLan: CVA w/u PT OT MRI Discharge Diagnosis Assessment: CVA subacute Smoker DM Dysarthria PLan: CVA w/u PT OT MRI 06/09/20: MRI reviewed Cardiology appreciated [employer]s Helper closely Start Aspirin and Lipitor (1) CVA (cerebral vascular accident) Clinical Quality Measures DVT/VTE Risk/Contraindication: Risk Factor Score Per Nursin RFS Level Per Nursing on Admit: 4+=Very High KATHY BUSH DO Jun 10, 2020 10:20
--- NOTE | 2020-06-10 11:21 | Progress Note ---
GARY INIGUEZ MED STUDENT 06/10/20 1121: Progress Note Ms. Willams is a pleasant 55 y.o. female who presented to the ED on 06/08 after experiencing weakness, headache, and dysarthria. CT of the head completed in the ED showed a "vague low density area in the left posterior parietal and occipital lobes". She was admitted for observation and further work up for a possible stroke. MRI of the brain showed "acute/subacute infarct in left posterior parieto-occipital lobes", which corresponded to the findings on the CT. A1C in ED was also found to be 10.1, so she was started on glyburide. She is a current smoker and was started on nicotine patches with her admission. Carotid US is pending. She is ready for discharge and has expressed interest in continuing the patches to stop smoking. ROSA BUSH DO 06/11/20 0553: Supervisory-Addendum Brief Verification & Attestation Participated in pt care: history, MDM, physical Personally performed: exam, history, MDM, supervision of care Care discussed with: Medical Student Procedures: n/a Results interpretation: Verified all documentation Verification and Attestation of Medical Student E/M Service A medical student performed and documented this service in my presence. I reviewed and verified all information documented by the medical student and made modifications to such information, when appropriate. I personally performed the physical exam and medical decision making. Rosa Bush, Jun 11, 2020,05:53 GARY INIGUEZ MED STUDENT Jun 10, 2020 11:21 ROSA BUSH DO Jun 11, 2020 05:53
--- NOTE | 2020-06-10 11:46 | Diagnostic Imaging Report ---
PROCEDURE: US carotid duplex, bilateral. TECHNIQUE: Multiple real-time grayscale images were obtained over the carotid arteries in various projections, bilaterally. Additional spectral analysis and color Doppler duplex images were also obtained. INDICATION: CVA There are no prior carotid Doppler examinations available for comparison. The CTA head and neck exam performed on 06/08/2020 failed to show any sign of a hemodynamically significant stenosis of either carotid system. On this exam there is mild soft plaque formation in both carotid systems. The flow velocities failed to show any evidence for hemodynamically significant stenosis of the common or internal carotid arteries. There was antegrade blood flow in the left vertebral artery but the right vertebral artery could not be identified. The right vertebral artery appeared normal on the CT and neck exam. IMPRESSION: 1. There is no evidence for hemodynamically significant stenosis of the common or internal carotid arteries. 2. The left vertebral artery shows antegrade flow. The right vertebral artery could not be visualized but there was no abnormality of the right vertebral artery on the recent CTA head and neck exam. Parameters based on the consensus panel Lema-Scale and Doppler ultrasound criteria published June 2003, Radiology, Volume 229. DOPPLER (peak systolic velocity M/S Right Left CCA .6 .6 ICA Proximal .4 .3 ICA Mid .6 .5 ICA Distal .4 .6 RATIO .9 .8 ECA .6 .5 VERT NOT VISUALIZED .3 Dictated by: Dictated on workstation # [id number]
[2020-06-10 11:48] VITALS: BP 145/87
--- NOTE | 2020-06-10 12:06 | NUR ---
CM/SS discharge planning. Plan: patient will discharge home. No needs. The patient reports that she has everything she needs at home. Her significant other is coming to pick her up.
--- NOTE | 2020-06-11 04:50 | Physician Query Clarification ---
PQ-Uncertain Diagnosis Admission/Discharge Admission Date: Jun 08, 2020 at 16:51 Discharge Date: Jun 10, 2020 at 11:40 KATHY Mcmullen DO The medical record reflects the following clinical scenario: History/Risk Factors: 55 y/o female patient presents with unalble to speak clearly, due to dysarthria found to have sub acute CVA. Ed physician note, 06/08: Sub acute CVA, Urinary tract infection. Hand P, 06/08: Sub acute CVA, dysarthria, smoker. Clinical Findings: UA- Escherichia coli, Aerococus urinae Treatment: Ceftriaxone IV Question: Is Urinary tract infection a clinically valid diagnosis? Urinary tract infection was documented in the ED physician note with no further documentation in the medical record. Please document a response in Progress Note or Discharge Summary. 1. Yes, clinically valid, condition resolved. 2. No, condition ruled out. 3. Other, with explanation of clinical findings. 4. Undetermined, no explanation for clinical findings. PHYSICIAN RESPONSE Diagnosis clinically valid: Yes, Conditon resolved Please remember a lack of response to the above will prompt a phone page by CDI/Coding staff. In responding to this query, please exercise your independent professional judgment. The purpose of this communication is to more accurately reflect the complexity of your patients condition. The fact that a question is asked does not imply that any particular answer is desired or expected. Thank you for your timely response to this clarification. Requestors name: [ ] Phone # [ ] THIS PHYSICIAN QUERY FORM IS A PERMANENT PART OF THE MEDICAL RECORD ANNA ESTRELLA Jun 11, 2020 04:50 KATHY BUSH DO Jun 11, 2020 05:55
== END 2020-06-10 11:40 | disposition home or self-care (01) | DRG 65 ==
LOC: ER 14:37 → 4TH 16:51
PROVIDERS: ADMIT Internal Medicine; ATTEND Internal Medicine
DX: I63.9 Cerebral infarction, unspecified (principal); N39.0 Urinary tract infection, site not specified; R47.1 Dysarthria and anarthria; R26.2 Difficulty in walking, not elsewhere classified; E11.9 Type 2 diabetes mellitus without complications; R29.701 NIHSS score 1; F17.210 Nicotine dependence, cigarettes, uncomplicated; E66.9 Obesity, unspecified; Z68.37 Body mass index [BMI] 37.0-37.9, adult; I10 Essential (primary) hypertension; E78.5 Hyperlipidemia, unspecified
CPT/HCPCS: 36415; 70450; 70496; 70498; 70551; 71045; 80053; 80061; 80306; 80320; 81000; 82962; 83036; 85025; 85652; 86141; 87077; 87088; 87186; 93005; 93306; 93880